=== PATIENT | male | born 1995 | race African-American/Black ===

== ENCOUNTER 2022-09-30 10:49 | Emergency (ER) | payer MEDICAID, OTHER ==
[~2022-09-30] VITALS: Ht 182.9 cm; Wt 86.0 kg
[2022-09-30] MEDS ORDERED: SODIUM CHLORIDE 0.9% 1,000 ML IV ONE (11:15)
[2022-09-30] MEDS ORDERED: EPINEPHRINE 1:1000 1 MG/ML AMP IM ONE (11:15)
[2022-09-30] MEDS ORDERED: FAMOTIDINE 20MG/2ML VIAL IV ONE (11:15)
[2022-09-30] MEDS ORDERED: METHYLPREDNISOLONE SOD SUCC 125 MG/2 ML VIAL IV ONE (11:15)
[2022-09-30 13:40] VITALS: BP 104/81
[2022-09-30] MEDS ORDERED: EPIN0.3P3 IM (14:01)
[2022-09-30] MEDS ORDERED: B50 MT (14:01)
== END 2022-10-01 08:26 | disposition home or self-care (01) ==
LOC: ER 10:49
DX: T78.40XA Allergy, unspecified, initial encounter (principal); X58.XXXA Exposure to other specified factors, initial encounter; F12.10 Cannabis abuse, uncomplicated
CPT/HCPCS: 96361; 96372; 96374; 96375; 99284; J2930; J3490; J7030; Z7610

== ENCOUNTER 2022-10-02 10:45 | Emergency (ER) | payer MEDICAID ==
[~2022-10-02] VITALS: Ht 190.5 cm; Wt 73.0 kg
[~2022-10-02 10:45] MED LIST: B50 MT; EPIN0.3P3 IM
[2022-10-02 11:27] VITALS: BP 135/84
== END 2022-10-02 12:52 | disposition home or self-care (01) ==
LOC: ER 10:45
DX: T78.40XA Allergy, unspecified, initial encounter (principal); X58.XXXA Exposure to other specified factors, initial encounter; H57.89 Other specified disorders of eye and adnexa; F12.10 Cannabis abuse, uncomplicated
CPT/HCPCS: 99281